=== PATIENT | male | born 1960 | race Caucasian/White ===

== ENCOUNTER 2016-07-20 12:40 | Emergency (ER) | payer OTHER ==
[~2016-07-20 12:40] MED LIST: ARTIFICIAL TEAR15 M2 OS; ATENOLOL25 MG PO; ATENOLOL50 MG PO; ATORVASTATIN CA10 MG PO; ATORVASTATIN CA20 MG PO; ATORVASTATIN CA40 MG PO; ERYTHROMYCIN5 MG/GM OPH; ILOTYCIN5 MG/GM OPH; LISINOPRIL10 MG PO; LISINOPRIL20 MG PO; PRAVASTATIN SOD40 MG; REFRESH LIQUIGE15 ML OPH; VISINE 15 ML15 ML OPH
--- NOTE | 2016-07-20 12:52 | ED PSYCHIATRIC COMPLAINT ---
History of Present Illness General Chief Complaint: Psychiatric Related Complaint Stated Complaint: BIBA FOR DEPRESSION Source: patient, old records, EMS Exam Limitations: no limitations Vital Signs & Intake/Output Vital Signs & Intake/Output Vital Signs Date Time Temp Pulse Resp B/P B/P Pulse O2 O2 Flow FiO2 Mean Ox Delivery Rate 07/21 1022 97.3 74 16 135/80 07/21 1022 97.3 74 16 135/80 99 Room Air 07/21 0921 68 133/82 07/21 0921 68 133/82 07/21 0812 97.5 68 18 133/82 07/21 0812 97.5 68 22 133/82 95 07/21 0608 98.7 71 20 132/73 07/21 0558 98.7 71 18 132/73 97 Room Air 07/21 0146 97.6 66 18 127/78 07/21 0126 97.6 66 18 127/78 96 Room Air 07/20 2250 98.2 100 16 144/80 94 Room Air 07/20 2244 Room Air 07/20 1920 84 16 140/90 07/20 1919 98.4 84 16 140/90 98 Room Air 07/20 1751 Room Air 07/20 1635 98.4 80 16 144/80 05 1635 98.4 80 16 144/80 94 Room Air 07/20 1403 97.6 64 16 138/80 07/20 1330 Room Air 07/20 1250 97.6 64 16 138/80 95 Room Air Allergies Coded Allergies: NO KNOWN ALLERGIES (03/06/15) Reconcile Medications Amlodipine Besylate 10 MG TABLET 1 TAB PO DAILY SUPPLEMENT (Reported) Folic Acid 1 MG TABLET 1 TAB PO DAILY SUPPLEMENT (Reported) Lisinopril (Prinivil) 10 MG TABLET 1 TAB PO DAILY BP (Reported) Nicotine (Nicotine Patch) 14 MG/24 HOUR PATCH.TD24 1 PAT TOP DAILY SMOKING CESSATION (Reported) Pantoprazole Sodium 40 MG TABLET.DR 1 TAB PO DAILY GI (Reported) Potassium Chloride (K-Tab ER) 10 MEQ TABLET.ER 1 TAB PO DAILY SUPPLEMENT ( Reported) Thiamine HCl (B-1) (Unknown Strength) TABLET (Unknown Dose) PO DAILY SUPPLEMENT (Reported) Trazodone HCl 50 MG TABLET 1 TAB PO QPM SLEEP (Reported) Triage Note: PT BIBA FOR DEPRESSION AND ETOH USE. PT CALM AND COOPERATIVE ON ARRIVAL. PT REPORTS "FEELING LIKE GIVING UP" BUT DENIES CURRENT SI OR HI. PT STATES HE DRANK A 24 OZ. BEER AT 11AM Triage Nurses Notes Reviewed? yes HPI: Patient presents with increasing depression and suicidal ideations. There is no plan. Patient states that his father recently and since then is been having thoughts of harming himself. Patient states that he has had increased alcohol use ever since his father since he is using alcohol as a crutch for his depression. Patient does have a history of alcohol withdrawal seizures. His last drink was this morning. Patient denies any homicidal ideations. Patient denies any hallucinations. Patient was at [facility] on Thursday and was discharged. (KAJAL FULLER,JOSE C Neumann) Past History Medical History Any Pertinent Medical History? 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 No (KAJAL FULLER,JOSE C Neumann) Review of Systems Review of Systems Constitutional: Reports: no symptoms. EENTM: Reports: no symptoms. Respiratory: Reports: no symptoms. Cardiovascular: Reports: no symptoms. GI: Reports: no symptoms. Genitourinary: Reports: no symptoms. Musculoskeletal: Reports: no symptoms. Skin: Reports: no symptoms. Neurological/Psychological: Reports: see HPI, depressed. Hematologic/Endocrine: Reports: no symptoms. Immunologic/Allergic: Reports: no symptoms. All Other Systems: Reviewed and Negative (KAJAL FULLER,JOSE C Neumann) Physical Exam Physical Exam General Appearance: well developed/nourished, mild distress Head: atraumatic Eyes: Bilateral: PERRL, EOMI. Ears, Nose, Throat: normal pharynx, normal ENT inspection, hearing grossly normal Neck: normal inspection, supple Respiratory: normal breath sounds Cardiovascular: regular rate/rhythm Gastrointestinal: soft, non-tender Extremities: normal range of motion Neurological/Psychiatric: no motor/sensory deficits, awake, alert, calm, oriented x 3 Appearance/Memory/Insight: appropriate appearance, appropriate insight Behavoir/Eye Contact/Speech: cooperative, normal speech, good eye contact Thoughts/Hallucinations: normal thought pattern, no apparent hallucination Skin: intact, normal color, warm/dry SAD PERSONS Done? CRISIS CONSULT OBTAINED (KAJAL FULLER,JOSE C Neumann) Progress Differential Diagnosis: drug intoxication, drug overdose, drug withdrawal, electrolyte abnormality Plan of Care: Orders Procedure Date/time Status Regular Diet 07/21 B Active Pathway - chart 07/20 2016 Active Continuous Observation Monitor 07/20 125 Active CIWA 07/20 1251 Active URINE DRUGS OF ABUSE 07/20 1251 Complete ETHANOL 07/20 1251 Complete COMPREHENSIVE METABOLIC PANEL 07/20 1251 Complete CBC WITHOUT DIFFERENTIAL 07/20 1251 Complete ED CRISIS PSYCH CONSULT 07/20 1251 Active Current Medications Sig/[place] Start time Last Medication Dose Stop Time Status Admin Lorazepam 2 MG Q2P PRN 07/20 2029 AC (Ativan) Lorazepam 1 MG Q2P PRN 07/20 2029 AC 07/20 (Ativan) 2320 Laboratory Tests 07/20/16 1345: CBC w Diff NO MAN DIFF REQ, RBC 4.68 L, MCV 93.4, MCH 31.6 H, RDW 14.0, MPV 9.1, Gran % 73.4, Lymphocytes % 16.8 L, Monocytes % 4.2, Eosinophils % 5.1 H, Basophils % 0.5, Absolute Granulocytes 6.0, Absolute Lymphocytes 1.4, Absolute Monocytes 0.3, Absolute Eosinophils 0.4, Absolute Basophils 0, PUBS MCHC 33.8 07/20/16 1320: Urine Opiates Screen < 100.00, Methadone Screen < 40, Barbiturate Screen < 60, Ur Phencyclidine Scrn < 6.00, Amphetamines Screen 109, U Benzodiazepines Scrn > 800 H, Urine Cocaine Screen < 50, Urine Cannabis Screen < 5.00 07/20/16 1245: Anion Gap 10, Estimated GFR > 60, BUN/Creatinine Ratio 20.0, Glucose 125 H, Calcium 9.6, Total Bilirubin 0.6, AST 56, ALT 66, Alkaline Phosphatase 85, Total Protein 7.4, Albumin 4.6, Globulin 2.8, Albumin/Globulin Ratio 1.6, Serum Alcohol < 10.0 7:15 AM PATIENT SIGNED OUT TO ME BY DR MUSE. PENDING CRISIS DISPOSITION. 11:40 AM Patient to be sent to [facility] for inpatient admission for alcohol and depression. (BLAKE FRANK MD) Hand-Off Endorsed To: YANDEL MUSE MD Endorsed Time: 1911 Pending: consult (BED SEARCH) (JOSE C RDZ MD) Hand-Off Endorsed To: BLAKE FRANK MD Endorsed Time: 07 Pending: consult (YANDEL MUSE MD) Departure Departure Condition: Guarded Clinical Impression Primary Impression: Depression Referrals: MARIBEL CHRISTIAN MD Departure Forms: Customer Survey General Discharge Information (JOSE C RDZ MD) Departure Time of Disposition: 1150 Disposition: [facility] (BLAKE FRANK MD) Disposition: [facility] (BLAKE FRANK MD)
[2016-07-20 14:12] LABS: ABSOLUTE BASOPHIL COUNT 0 /CUMM (0.0-0.2); ABSOLUTE EOSINOPHIL COUNT 0.4 /CUMM (0.0-0.7); ABSOLUTE LYMPH COUNT 1.4 /CUMM (1.2-3.4); ABSOLUTE MONOCYTE COUNT 0.3 /CUMM (0.10-0.60); BASOPHIL % 0.5 % (0.0-2.0); EOSINOPHIL % 5.1 % (0-5); GRANULOCYTE % 73.4 % (42.2-75.2); HEMATOCRIT 43.7 % (42-52); MEAN CORPUSCULAR HGB 31.6 PG (27.0-31.0); MEAN CORPUSCULAR HGB CONC 33.8 G/DL (33.0-37.0); MEAN CORPUSCULAR VOLUME 93.4 FL (80.0-94.0); MEAN PLATELET VOLUME 9.1 FL (7.4-10.4); PLATELET COUNT 194 /CUMM (130-400); RED BLOOD CELL CT 4.68 /CUMM (4.70-6.10); WHITE BLOOD CELL COUNT 8.2 /CUMM (4.8-10.8)
--- NOTE | 2016-07-20 15:22 | ED PSYCH CRISIS CONSULTATION ---
See Addendum Crisis Consult Basic Assessment Date of Consult: 07/20/16 Responsible Person/Accompanied By: self Insurance Authorization: Insurance #1: Insurance name: SHANI JEFFREY Phone number: Policy number: [id number] Group number: Authorization number: ED Provider: Patient's ED Provider: JOSE C RDZ MD Primary Care Physician: Patient's PCP: ANABEL JAIN DO PCP's Current Psychiatrist: none Chief Complaint: Psychiatric Related Complaint Patient's Quote: Its been a rough month since my father . Present Illness: Pt is a 55 yo male biba to [facility] this afternoon with reports of increased depression and SI. Pt has a long hx of etoh abuse and reports concern of prior etoh withdrawal seizures. He reports he has been gradually decreasing his etoh intake to avoid a seizure. Pt reports his father unexpectedly last month which triggered a relapse. He reports having difficulties managing grief and recently been having suicidal ideation. He denies having a plan. He reports periods of sobriety and relapse past 5 yrs and was sober 4 months prior to father's . He has had multiple prior detox and inpatient tx for etoh dependence but no prior psychiatric treatment hx. Pt reports wanting help for depression and to stop drinking. He reports his children and grandchildren are supports but his friend's collateral report indicated discord possibly related to his most recent relapse. Pt presents as alert, depressed, engaged, OX3. Patient's Address: [address] [place] [address] [address] Other Phone Number: Who Do You Live With? Other (see notes) (friend Toni) Family/Informants Interviewed: friend Toni- see collateral note Allergies - Coded Allergies: NO KNOWN ALLERGIES (03/06/15) Laboratory Results: Laboratory Tests 07/20/16 1345: CBC w Diff NO MAN DIFF REQ, RBC 4.68 L, MCV 93.4, MCH 31.6 H, RDW 14.0, MPV 9.1, Gran % 73.4, Lymphocytes % 16.8 L, Monocytes % 4.2, Eosinophils % 5.1 H, Basophils % 0.5, Absolute Granulocytes 6.0, Absolute Lymphocytes 1.4, Absolute Monocytes 0.3, Absolute Eosinophils 0.4, Absolute Basophils 0, PUBS MCHC 33.8 07/20/16 1320: Urine Opiates Screen < 100.00, Methadone Screen < 40, Barbiturate Screen < 60, Ur Phencyclidine Scrn < 6.00, Amphetamines Screen 109, U Benzodiazepines Scrn > 800 H, Urine Cocaine Screen < 50, Urine Cannabis Screen < 5.00 07/20/16 1245: Anion Gap 10, Estimated GFR > 60, BUN/Creatinine Ratio 20.0, Glucose 125 H, Calcium 9.6, Total Bilirubin 0.6, AST 56, ALT 66, Alkaline Phosphatase 85, Total Protein 7.4, Albumin 4.6, Globulin 2.8, Albumin/Globulin Ratio 1.6, Serum Alcohol < 10.0 (RISHABH GRANADO LCSW) Current Medications - Scheduled Medications Amlodipine Besylate 10 MG TABLET 1 TAB PO DAILY SUPPLEMENT (Reported) Entered as Reported by JAY MCCULLOUGH on 07/20/161757 Folic Acid 1 MG TABLET 1 TAB PO DAILY SUPPLEMENT (Reported) Entered as Reported by JAY MCCULLOUGH on 07/20/161756 Lisinopril (Prinivil) 10 MG TABLET 1 TAB PO DAILY BP (Reported) Entered as Reported by JAY MCCULLOUGH on 07/20/161756 Nicotine (Nicotine Patch) 14 MG/24 HOUR PATCH.TD24 1 PAT TOP DAILY SMOKING CESSATION (Reported) Entered as Reported by JAY MCCULLOUGH on 07/20/161758 Pantoprazole Sodium 40 MG TABLET.DR 1 TAB PO DAILY GI (Reported) Entered as Reported by JAY MCCULLOUGH on 07/20/161758 Potassium Chloride (K-Tab ER) 10 MEQ TABLET.ER 1 TAB PO DAILY SUPPLEMENT ( Reported) Entered as Reported by JAY MCCULLOUGH on 07/20/161757 Thiamine HCl (B-1) (Unknown Strength) TABLET (Unknown Dose) PO DAILY SUPPLEMENT (Reported) Entered as Reported by JAY MCCULLOUGH on 07/20/161757 Trazodone HCl 50 MG TABLET 1 TAB PO QPM SLEEP (Reported) Entered as Reported by JAY MCCULLOUGH on 07/20/161758 (TRICE OLVERA LCSW) Past History Past Medical History Neurological: delerium tremens, FROM ETOH EENT: PARTIAL CORNEAL TEAR Cardiovascular: hypertension, hyperlipidemia, ?SMALL BLOCKAGE Respiratory: NONE Gastrointestinal: NONE Hepatic: NONE Renal: NONE Musculoskeletal: CARPEL TUNNEL TORN CARTILIDGE R KNEE Psychiatric: alcohol dependence Endocrine: NONE Blood Disorders: NONE Cancer(s): NONE 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 Psychiatric Treatment History Psych Treatment Psychiatric Treatment No Inpatient Treatment No Outpatient Treatment No Diagnosis by History: ETOH Use D/O Substance Use/Abuse History Drug Use/Abuse Substances Used/Abused Yes Substance Used/Abused Alcohol Last Used today How much used/taken 24 oz beer How often daily For how long chronic/periods of sobriety Substance Abuse Treatment Substance Abuse Treatment Past Substance Abuse TX Yes Inpatient Treatment Yes Outpatient Treatment Yes Location of Treatment [place]; [facility]; [place]; [facility] Reason for Treatment Etoh abuse Dates of Treatment Multiple inpatient/detox episodes past 5 yrs. At [facility] ED on Thursday Response to Treatment periods of sobriety and relapse Comments: reports last full day of heavy drinking (quart) was Wed. Last few days cutting down intake (yesterday 2/40 oz; today 24 oz). Hx of seizures. Worried about seizure from etoh withdrawal. (RISHABH GRANADO LCSW) Current Mental Status Mental Status Orientation: Person, Place, Situation Affect: Depressed Speech: WNL Neuro-vegetative: Anhedonia, Concentration Poor, Energy Decreased, Helpless, Loss of Interest, Sleep Disturbance Appearance Appearance- Dress/Hygiene: hospital scrubs; sitting up on end of bed - engaged-good eye contact; Behaviors Thought Process: WNL Thought Content: WNL Memory: WNL Insight: Fair SI/HI Risk Assessment Past Suicidal Ideation/Attempts No Current Suicidal Ideation/Att Yes Past Homicidal Ideation/Att: No Current Homicidal Ideation/Attempts No Degree of Intent: Thoughts/No Intent Danger To: Self Gravely Disabled: Poor Impulse Control, Poor Judgment Risk Factors: chronic/serious med cond., high anxiety/distress, SA/MH hospitalized, substance abuse, isolate/no social support, poor impulse control, lives alone, male, limited support Lethality Ratin PTSD Checklist PTSD Done? patient declined ED Management Sitter: Yes Restraints: No (RISHABH GRANADO LCSW) DSM5/PS Stressors/Medical Prob Diagnosis' (DSM 5, Stressors, Medical): Unspecified Depressive D/O (F32.9) Alcohol Use D/O (F10.20) bereavement family stress high blood pressure Current GAF: 25 Comments: Pt reports relapse, increased grief related depression and discord with children since his father passed apprx one month ago. Pt reports SI with no plan (RISHABH GRANADO LCSW) Departure Disposition Psych Medical Clearance Date: 07/20/16 Medically Cleared at: 1430 Time Started: 1435 Time Ended: 151 Psychiatrist Consulted: Mehul Bonner MD Date Disposition Established: 07/20/16 Time Disposition Established: 1519 Plan for Disposition - Modality: Bed Search Rationale for Disposition: Pt requires inpatient psychiatric admission due to positive suicidal ideation. Pt reporting increase etoh use and depression since father's last month. Referrals ANABEL JAIN DO (PCP/Family) (RISHABH GRANADO LCSW) Addendum Addendum This personal lines underwriter reviewed patient's physician report, crisis consultation, and nursing notes. This personal lines underwriter met briefly w/ patient for pm crisis reassessment. Patient presents slightly anxious and reports he is awaiting his PM medications (ativan / trazadone.) Patient reports feeling "shaky" - this personal lines underwriter obseved some mild tremors in hands. Pt.'s most recent CIWA score assessed by RN is 5 for anxiety and tremors - no acute withdrawal. Pt. requested reading material which this personal lines underwriter provided. Pt. complained about in - room television being inoperational. Patient reported no other concerns at this time. Patient is aware of pending bed search and need for psychiatric inpatient admission. (TRICE OLVERA LCSW)
--- NOTE | 2016-07-20 15:22 | ED PSY CRISIS COLLATERAL NOTE ---
Collateral Note Collateral Note Family/Inform/Clint Contacts: T/C Toni Navas ([phone]) who stated the pt moved in with him 12/2015 until 2 months ago. Mr. Navas stated the pt then moved to a boarding house until 1 week ago when he moved back again with Mr. Navas. Mr. Navas stated the pt became depressed started heavily drinking and after the pts father approximately 1 month ago. Mr Navas stated he has not seen the pt depressed in the past. Mr. Navas stated the pt has repeatedly stated he does
[2016-07-20] MEDS ORDERED: FOLIC ACID1 M1 PO (17:57)
[2016-07-20] MEDS ORDERED: PRINIVIL10 M1 PO (17:57)
[2016-07-20] MEDS ORDERED: AMLODIPINE BESY10 M1 PO (17:58)
[2016-07-20] MEDS ORDERED: B-1100 MG PO (17:58)
[2016-07-20] MEDS ORDERED: K-TAB ER10 MEQ PO (17:58)
[2016-07-20] MEDS ORDERED: NICOTINE PATCH1 EAC2 TOP (17:59)
[2016-07-20] MEDS ORDERED: TRAZODONE HCL50 M1 PO (17:59)
[2016-07-20] MEDS ORDERED: PANTOPRAZOLE SO40 M1 PO (17:59)
[2016-07-21 10:22] VITALS: BP 135/80
== END 2016-07-21 13:12 | disposition short-term general hospital (02) ==
LOC: ERH 12:40
PROVIDERS: Emergency Medicine
DX: F32.9 Major depressive disorder, single episode, unspecified (principal)
CPT/HCPCS: 80307; G0463; G0480